=== PATIENT | male | born 1950 | race Asian ===

== ENCOUNTER 2018-11-12 18:00 | Outpatient (CLI) | payer BC | END 2018-11-12 18:01 | disposition home or self-care (01) | LOC: SLEEPLAB 18:00 | PROVIDERS: ATTEND Internal Medicine | DX: G47.33 Obstructive sleep apnea (adult) (pediatric) (principal); R53.83 Other fatigue; R51 Headache; G47.00 Insomnia, unspecified; R06.83 Snoring; R35.1 Nocturia; R09.02 Hypoxemia | CPT/HCPCS: 95806 ==

== ENCOUNTER 2019-10-22 07:57 | Outpatient (CLI) | payer BC ==
--- NOTE | 2019-10-22 10:48 | CT ---
ABDOMEN AND PELVIC CT SCAN WITH AND WITHOUT IV CONTRAST: Date: 10/21/2019 HISTORY: Abnormal findings on diagnostic imaging. COMPARISON: 04/08/2019, 08/20/2018. FINDINGS: Again noted is a small, vascular focus in the dome of the liver, segment VIII, felt most likely to re present an arterial systemic venous shunt. No evidence for associated mass. Evidence for hiatal herni a and left renal cyst. Small, stable cyst in left lobe of liver. IMPRESSION: 1. Stable vascular focus in the dome of the liver, segment VIII, most likely representing an arteria l systemic venous shunt. No evidence for mass. 2. Small hiatal hernia. 3. Left renal cyst. POS: RRE
== END 2019-10-22 07:58 | disposition home or self-care (01) ==
LOC: SCSCT 07:57
PROVIDERS: ATTEND Internal Medicine
DX: R93.89 Abnormal findings on diagnostic imaging of other specified body structures (principal); K44.9 Diaphragmatic hernia without obstruction or gangrene; N28.1 Cyst of kidney, acquired
CPT/HCPCS: 74170; 82565

== ENCOUNTER 2023-01-25 12:22 | Outpatient (CLI) | payer BC ==
[2023-01-25 13:45] LABS: #Eosinphils 0.1 10x3/uL (0.0-0.5); #Monocytes 0.3 10x3/uL (0.0-1.1); #Neutrophils 4.4 10x3/uL (1.5-8.4); %Basophils 0.6 % (0.0-2.0); %Eosinophils 1.6 % (0.0-6.0); %Lymphocytes 22.9 % (18.0-47.0); %Monocytes 4.6 % (0.0-10.0); %Neutrophils 69.8 % (40.0-75.0); Hematocrit 44.3 % (38.8-50.0); Hemoglobin 14.9 g/dL (13.5-17.5); Mean Corpuscular HGB CONC 33.6 g/dL (32.0-36.0); Mean Corpuscular Volume 92.1 fl (81.2-95.1); Mean Platelet Volume 10.6 fl (7.4-10.4); Platelet Count 161 10x3/uL (150-450); Red Blood Cell (RBC) Count 4.81 10x6/uL (4.32-5.72); White Blood Cell (WBC) Count 6.3 10x3/uL (3.5-10.5)
[2023-01-25 14:11] LABS: Anion Gap 14 mmol/L (10-20); BUN (Urea Nitrogen) 20 mg/dL (8.4-25.7); Calc. Creatinine Clearance 0 mL/min (70-130); Calcium 9.1 mg/dL (7.8-10.44); Carbon Dioxide 24 mmol/L (23-31); Chloride 106 mmol/L (98-107); Estimated GFR 92; Glucose 152 mg/dL (83-110); Potassium 4.3 mmol/L (3.5-5.1); Sodium 140 mmol/L (136-145)
== END 2023-01-25 12:23 | disposition home or self-care (01) ==
LOC: LABBT 12:22
PROVIDERS: ATTEND Specialist
DX: Z01.818 Encounter for other preprocedural examination (principal); K42.9 Umbilical hernia without obstruction or gangrene
CPT/HCPCS: 71046; 80048; 85025; 93005; 93010

== ENCOUNTER 2023-01-31 06:01 | Day surgery (SDC) | payer BC ==
[2023-01-25 12:57] VITALS: BMI 26.8
[2023-01-31] MEDS ORDERED: Sodium Chloride 0.9% 100 ML ONE (06:20)
[2023-01-31] MEDS ORDERED: Ketorolac Tromethamine 30 MG/ML VIAL ONE (06:20)
[2023-01-31] MEDS ORDERED: Acetaminophen 500 MG TAB ONE (06:20)
[2023-01-31] MEDS ORDERED: CEFAZOLIN 2 GM VIAL ONE (06:20)
[2023-01-31] MEDS ORDERED: EPINEPHrine 1 MG/ML AMP ONE (06:35)
[2023-01-31] MEDS ORDERED: Bupivacaine 0.25% HCL 30 ML VIAL ONE (06:35)
[2023-01-31] MEDS ORDERED: SUGAMMADEX SODIUM 200 MG/2 ML VIAL ONE (06:44)
[2023-01-31] MEDS ORDERED: fentaNYL PF 100 MCG/2 ML SYRINGE ONE (06:44)
[2023-01-31] MEDS ORDERED: Famotidine/PF 20 mg/2ml Vial ONE (06:44)
[2023-01-31] MEDS ORDERED: Ondansetron PF 4 MG/2 ML Vial ONE (07:35)
[2023-01-31] MEDS ORDERED: PROPOFOL 200 MG/20 ML VIAL ONE (07:35)
[2023-01-31] MEDS ORDERED: ePHEDrine Sulfate 50 MG/10 ML VIAL ONE (07:35)
[2023-01-31] MEDS ORDERED: Lidocaine 1% PF 5 ML VIAL ONE (07:35)
[2023-01-31] MEDS ORDERED: Glycopyrrolate 0.2 MG/ML 5 ML SYRINGE ONE (07:35)
[2023-01-31] MEDS ORDERED: Dexamethasone 20 MG/5 ML VIAL ONE (07:35)
== END 2023-01-31 10:40 | disposition home or self-care (01) ==
LOC: SDC 06:01
PROVIDERS: ATTEND Specialist
PROC: 0WUF0JZ Supplement Abdominal Wall with Synthetic Substitute, Open Approach (ICD-10-PCS; principal; 2023-01-31)
DX: K42.9 Umbilical hernia without obstruction or gangrene (principal)
CPT/HCPCS: C1889; J0171; J1100; J1885; J2405; J2704; J3490; S0020; S0028